=== PATIENT | male | born 1980 | race Caucasian/White ===

== ENCOUNTER 2016-11-30 19:03 | Emergency (ER) | payer SELFPAY ==
[~2016-11-30] VITALS: Ht 180.3 cm; Wt 99.8 kg
[2016-11-30 19:24] VITALS: BP 131/83
--- NOTE | 2016-11-30 19:28 | NUR ---
PT TAKEN TO BED 8
--- NOTE | 2016-11-30 19:30 | NUR ---
36 Y/O HERE W/C/O L EAR PAIN X 2 HRS AGO. DENIES N/V OR FEVER. NO S/S OF DISTRESS NOTED AT THE MOMENT. RAY AWARED.
--- NOTE | 2016-11-30 19:30 | NUR ---
PA Fernandez evaluating patient at bedside.
[2016-11-30] MEDS ORDERED: IBUPROFEN 800 MG TAB PO ONE (19:40)
[2016-11-30 19:58] VITALS: BP 131/83
--- NOTE | 2016-11-30 19:58 | NUR ---
Patient discharged with v/s stable. Written and verbal after care instructions given and explained. Patient alert, oriented and verbalized understanding of instructions. Ambulatory with steady gait. All questions addressed prior to discharge. ID band removed. Patient advised to follow up with PMD IN 2-3 DAYS OR RETURN TO ER IF S/S WORSENS. Rx of AUGMENTIN AND IBUPROFEN given. Patient educated on indication of medication including possible reaction and side effects. Opportunity to ask questions provided and answered.
== END 2016-11-30 19:58 | disposition home or self-care (01) ==
LOC: MED 19:03
DX: H66.92 Otitis media, unspecified, left ear (principal)

== ENCOUNTER 2017-02-11 20:05 | Emergency (ER) | payer BC ==
[~2017-02-11] VITALS: Ht 180.3 cm; Wt 102.1 kg
[2017-02-11 20:28] VITALS: BP 130/74
--- NOTE | 2017-02-11 21:42 | NUR ---
PT TAKEN TO BED 3
--- NOTE | 2017-02-11 21:50 | NUR ---
PATIENT PRESENTS TO ED WITH C/O MEDAL IN RT EYE OF YESTERDAY . PT DENIES N/V/D; SKIN IS PINK/WARM/DRY; AAOX4 WITH EVEN AND STEADY GAIT; LUNGS CLEAR BL; HR EVEN AND REGULAR; PT DENIES ANY FEVER, CP, SOB, OR COUGH AT THIS TIME; PATIENT STATES PAIN OF 0/10 AT THIS TIME; VSS; PATIENT POSITIONED FOR COMFORT; HOB ELEVATED; BEDRAILS UP X2; BED DOWN. ER MD MADE AWARE OF PT STATUS.
[2017-02-11] MEDS ORDERED: FLUORESCEIN OPTH STRIP 1 MG ONE ×2 (22:02→22:36)
[2017-02-11] MEDS ORDERED: TETRACAINE 0.5% OPTH SOL 2 ML BTL ONE (22:03)
--- NOTE | 2017-02-11 22:03 | NUR ---
Dr. Cornell evaluating patient at bedside.
[2017-02-11] MEDS ORDERED: GENTAMICIN OP 0.3% 10.5 MG/3.5 GM TUBE OP ONE (22:25)
[2017-02-11 22:48] VITALS: BP 130/79
--- NOTE | 2017-02-11 22:48 | NUR ---
Patient discharged with v/s stable. Written and verbal after care instructions given and explained. Patient alert, oriented and verbalized understanding of instructions. Ambulatory with steady gait. All questions addressed prior to discharge. ID band removed. Patient advised to follow up with PMD. Rx of GARAMYCIN 0.3% OINTMENT given. Patient educated on indication of medication including possible reaction and side effects. Opportunity to ask questions provided and answered.
== END 2017-02-11 22:48 | disposition home or self-care (01) ==
LOC: MED 20:05
DX: S00.211A Abrasion of right eyelid and periocular area, initial encounter (principal); T15.01XA Foreign body in cornea, right eye, initial encounter; W45.8XXA Other foreign body or object entering through skin, initial encounter; Y93.89 Activity, other specified; Y92.89 Other specified places as the place of occurrence of the external cause; Y99.8 Other external cause status
CPT/HCPCS: 65220; 99284

== ENCOUNTER 2024-06-05 21:09 | Emergency (ER) | payer BC ==
[~2024-06-05] VITALS: Ht 180.3 cm; Wt 92.1 kg
[2024-06-05 21:18] VITALS: BP 137/101; PULSE 60; RESP 20; TEMP 98.1; O2SAT 99
[2024-06-05 22:00] VITALS: BP 150/78; PULSE 107; RESP 16; O2SAT 96
[2024-06-05] MEDS: IBUPROFEN 600 MG TAB PO ONE (22:38)
[2024-06-05] MEDS ORDERED: IBUPROFEN 600 MG TAB ONE (22:38)
[2024-06-05] MEDS ORDERED: NAPR-337 PO (22:38)
== END 2024-06-05 22:43 | disposition home or self-care (01) ==
LOC: MED 21:09
DX: S23.41XA Sprain of ribs, initial encounter (principal); X50.9XXA Other and unspecified overexertion or strenuous movements or postures, initial encounter; Y93.89 Activity, other specified; Y92.89 Other specified places as the place of occurrence of the external cause; Y99.8 Other external cause status
CPT/HCPCS: 71045; 99283